=== PATIENT | female | born 1990 | race Caucasian/White ===

== ENCOUNTER 2022-01-07 20:01 | Emergency (ER) | payer OTHER ==
[2022-01-07] MEDS ORDERED: VIBRAMYCIN100 MG PO (22:28)
[2022-01-07] MEDS ORDERED: PERCOCET 5-3251 EACH PO (22:28)
== END 2022-01-07 22:53 | disposition home or self-care (01) ==
LOC: FER 20:01
DX: L02.221 Furuncle of abdominal wall (principal); L03.311 Cellulitis of abdominal wall; F17.210 Nicotine dependence, cigarettes, uncomplicated
CPT/HCPCS: J1170